=== PATIENT | female | born 1990 | race Caucasian/White ===

== ENCOUNTER 2020-11-02 10:39 | Observation (INO) | payer MEDICAID ==
[~2020-11-02] VITALS: Ht 157.5 cm; Wt 67.6 kg
== END 2020-11-02 12:10 | disposition home or self-care (01) ==
LOC: 8 EST LDRP 10:39
PROVIDERS: ADMIT Obstetrics & Gynecology; ATTEND Obstetrics & Gynecology
DX: O36.8130 Decreased fetal movements, third trimester, not applicable or unspecified (principal); Z3A.36 36 weeks gestation of pregnancy
CPT/HCPCS: 59025; 76805; 76818; G0378; 99281